=== PATIENT | female | born 1990 | race Caucasian/White ===

== ENCOUNTER 2019-01-08 21:16 | Emergency (ER) | payer OTHER ==
[~2019-01-08] VITALS: Ht 167.6 cm; Wt 59.9 kg
[2019-01-09] MEDS ORDERED: KETO10TA2 PO (00:21)
== END 2019-01-09 00:39 ==
LOC: ER 21:16
DX: S60.052A Contusion of left little finger without damage to nail, initial encounter (principal); W20.8XXA Other cause of strike by thrown, projected or falling object, initial encounter; Y93.89 Activity, other specified; Y92.89 Other specified places as the place of occurrence of the external cause; Y99.8 Other external cause status

== ENCOUNTER 2019-01-18 14:49 | Outpatient (CLI) | payer OTHER ==
[~2019-01-18 14:49] MED LIST: KETO10TA2 PO
== END 2019-01-18 14:53 | disposition home or self-care (01) ==
LOC: RAD 14:49
DX: M79.642 Pain in left hand (principal)

== ENCOUNTER 2019-10-31 14:47 | Emergency (ER) | payer OTHER ==
[~2019-10-31] VITALS: Ht 157.5 cm; Wt 57.2 kg
== END 2019-10-31 19:21 | disposition home or self-care (01) ==
LOC: ER 14:47
DX: N83.291 Other ovarian cyst, right side (principal); R10.2 Pelvic and perineal pain

== ENCOUNTER 2020-01-16 07:18 | Outpatient (CLI) | payer OTHER | END 2020-01-16 13:58 | disposition home or self-care (01) | LOC: SONOGRAMA 07:18 | PROVIDERS: ATTEND Obstetrics & Gynecology | DX: N39.8 Other specified disorders of urinary system (principal) ==

== ENCOUNTER 2020-09-13 12:19 | Emergency (ER) | payer OTHER ==
[~2020-09-13] VITALS: Ht 167.6 cm; Wt 59.9 kg
== END 2020-09-13 17:44 | disposition home or self-care (01) ==
LOC: ER 12:19
DX: N28.1 Cyst of kidney, acquired (principal); M54.89 Other dorsalgia

== ENCOUNTER 2022-03-03 15:21 | Outpatient (CLI) | payer OTHER | END 2022-03-03 16:48 | disposition home or self-care (01) | LOC: PRENATAL 15:21 | PROVIDERS: ATTEND Obstetrics & Gynecology Maternal & Fetal Medicine | DX: O36.80X0 Pregnancy with inconclusive fetal viability, not applicable or unspecified (principal); Z36 Encounter for antenatal screening of mother; Z3A.14 14 weeks gestation of pregnancy ==